=== PATIENT | female | born 2000 | race Caucasian/White ===

== ENCOUNTER 2020-08-12 19:52 | Emergency (ER) | payer OTHER | END 2020-08-12 23:04 | disposition left against medical advice (07) | LOC: ER1 19:52 | DX: Z53.21 Procedure and treatment not carried out due to patient leaving prior to being seen by health care provider (principal) ==

== ENCOUNTER 2020-08-18 19:15 | Emergency (ER) | payer OTHER ==
[2020-08-18 20:44] LABS: HEMOGLOBIN 12.9 gm/dl (12.3-15.3); RED BLOOD COUNT 4.74 M/UL (4.00-5.10); WHITE BLOOD COUNT 16.9 K/UL (4.5-11.0)
[2020-08-18 21:02] LABS: BUN/CREATININE RATIO 12 (0-10)
[2020-08-18] MEDS ORDERED: CLEOCIN HCL300 MG PO (22:07)
[2020-08-18] MEDS ORDERED: IBUPROFEN600 MG PO (22:07)
== END 2020-08-18 22:21 | disposition home or self-care (01) ==
LOC: ER1 19:15
PROVIDERS: Family Medicine
DX: K04.7 Periapical abscess without sinus (principal); E04.9 Nontoxic goiter, unspecified; F17.210 Nicotine dependence, cigarettes, uncomplicated
CPT/HCPCS: 80053; 85007; 85027; 96372; 99283; J1885

== ENCOUNTER 2020-09-12 20:53 | Emergency (ER) | payer OTHER ==
[~2020-09-12 20:53] MED LIST: CLEOCIN HCL300 MG PO; IBUPROFEN600 MG PO
[2020-09-12 21:39] LABS: HEMOGLOBIN 12.7 gm/dl (12.3-15.3); RED BLOOD COUNT 5.16 M/UL (4.00-5.10); WHITE BLOOD COUNT 10.7 K/UL (4.5-11.0)
[2020-09-12 21:49] LABS: BUN/CREATININE RATIO 13 (0-10)
== END 2020-09-13 00:25 | disposition home or self-care (01) ==
LOC: ER1 20:53
PROVIDERS: Physician Assistant
DX: R10.84 Generalized abdominal pain (principal); R11.0 Nausea; F17.210 Nicotine dependence, cigarettes, uncomplicated; Z88.0 Allergy status to penicillin; Z90.89 Acquired absence of other organs
CPT/HCPCS: 80053; 81001; 83690; 84703; 85025; 87077; 87086; 87186; 99284; Q9967

== ENCOUNTER 2020-09-18 11:51 | Emergency (ER) | payer OTHER ==
[2020-09-18] MEDS ORDERED: MEDROL DOSEPAK 24 MG PO (13:00)
== END 2020-09-18 13:07 | disposition home or self-care (01) ==
LOC: ER1 11:51
DX: L50.0 Allergic urticaria (principal); T36.95XA Adverse effect of unspecified systemic antibiotic, initial encounter; F17.200 Nicotine dependence, unspecified, uncomplicated
CPT/HCPCS: 96374; 96375; 99283; J1100; J1200